=== PATIENT | male | born 1970 | race Caucasian/White ===

== ENCOUNTER 2022-05-04 15:12 | Emergency (ER) | payer MEDICARE, MEDICAID, SELFPAY ==
[2022-05-04 15:16] VITALS: BP 138/94; PULSE 106; RESP 16; TEMP 36.6; O2SAT 100
--- NOTE | 2022-05-04 15:46 | PC.NURSE ---
pt brother to desk to inform staff that he is going to take his brother home because he cannot wait this long. stating he might call an ambulance for him tomorrow or take him to a different facility. brother informed this RN cannot help him make that decision but we would be more than happy to take care of him.
== END 2022-05-04 15:46 | disposition left against medical advice (07) ==
PROVIDERS: PCP Family Medicine
DX: J02.9 Acute pharyngitis, unspecified (principal)
CPT/HCPCS: 99199

== ENCOUNTER 2022-06-30 14:00 | Emergency (ER) | payer MEDICARE, MEDICAID, SELFPAY ==
[2022-06-30 14:44] VITALS: BP 101/55; PULSE 95; RESP 14; TEMP 36.2; O2SAT 98
--- NOTE | 2022-06-30 17:22 | ED.MALEGU ---
HPI - Male Genitourinary General Chief complaint: Urogenital-Male Stated complaint: UTI Time Seen by Provider: 06/30/22 17:09 Source: patient and family Mode of arrival: wheelchair Limitations: other (patient is non-verbal) History of Present Illness HPI Narrative: This is a 52 year old male that presents to the ER for an at home positive UTI test. 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 Patient's brother reports he had a UTI a couple of weeks ago and was hospitalized at [facility]. They thought they should recheck him for UTI at home today. The at home test kit was positive. The patient does not seem to be having any symptoms. He has not seem to be in any pain. Patient is incontinent of urine chronically. He has not had any fevers or vomiting. 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 Family History Family History Sibling Family history of hypercholesterolemia Hypertension Acute myocardial infarction Family history of coronary artery disease Mother Family history of atrial fibrillation Family history of congestive heart failure Social History Social History (Updated 04/17/22 @ 15:53 by Nena Mejia [facility]) Smoking status: Never smoker Second hand tobacco smoke exposure: No Alcohol intake: never Substance use: never Substance use type: does not use Gender identity (if verbalized by the patient): Male Spiritual care concerns: No Agree to blood products: Yes Exam Narrative: GENERAL: Well-appearing, well-nourished, and in no acute distress. HEAD: Normocephalic, atraumatic. EYES: EOMI. CHEST: Clear to auscultation. No respiratory distress. No wheezes rales or rhonchi HEART: Regular rate and rhythm. No murmur heard. Normal peripheral pulses. ABDOMEN: Soft, nontender, nondistended, normal active bowel sounds. No CVA tenderness EXTREMITIES: Normal range of motion. No edema. SKIN: Warm, dry, no rash. NEURO: No focal deficits. Alert and oriented x1. PSYCH: Normal mood and affect Course Consultations Consultation #1: spoke with Dr. Browne about patient and workup who will get message to patient's PCP, Dr. Dorantes to follow up Date: 06/30/22 Vital Signs Vital signs: Vital Signs Temperature 97.1 F L 06/30/22 14:44 Pulse Rate 95 06/30/22 14:44 Respiratory Rate 14 06/30/22 14:44 Blood Pressure 101/55 L 06/30/22 14:44 Pulse Oximetry 98 06/30/22 14:44 Oxygen Delivery Room Air 06/30/22 14:44 Temperature 97.1 F L 06/30/22 14:44 Pulse Rate 95 06/30/22 14:44 Respiratory Rate 14 06/30/22 14:44 Blood Pressure 101/55 L 06/30/22 14:44 Pulse Oximetry 98 06/30/22 14:44 Oxygen Delivery Room Air 06/30/22 14:44 MDM - Male Genitourinary MDM Narrative Medical decision making narrative: Patient presents to the ER for a positive at home UTI kit. Patient with history of chromosomal abnormality and is non-verbal. History given by his brother. Patient is afebrile and nontoxic appearing. His vitals are stable. Does not appear to be in any pain. Abdominal exam is benign. No vomiting. CBC with mild leukocytosis. Also shows normocytic anemia with hemoglobin of 9.2. Metabolic panel with evidence of chronic renal disease looking at recent labs from one month ago his creatinine was 2.8 at that time
--- NOTE | 2022-06-30 18:22 | PC.NURSE ---
patient family, Joseph, would like a call when decision is made as to whether or not to discharge or admit
[2022-06-30 18:23] LABS: Basophils Absolute Auto 0.1 K/mm3 (0.0-0.1); Basophils Percent Auto 1.2 % (0.2-1.2); Eosinophils Absolute Auto 0.5 K/mm3 (0-0.3); Eosinophils Percent Auto 4.8 % (0-4.4); Hematocrit 27.2 % (42.0-52.0); Hemoglobin 9.2 g/dL (14.0-18.0); Immature Granulocyte Absolute 0.05 K/mm3 (0.00-0.031); Immature Granulocyte Percent A 0.4 % (0-0.5); Lymphocytes Absolute Auto 2.52 K/mm3 (0.9-3.2); Lymphocytes Percent Auto 22.6 % (18.3-44.2); Mean Corpuscular HGB Conc 33.8 g/dl (32-36); Mean Corpuscular Hemoglobin 29.5 pg (26-34); Mean Corpuscular Volume 87.2 fl (80-100); Mean Platelet Volume 8.9 fl (7.4-10.4); Monocytes Absolute Auto 1.3 K/mm3 (0.1-0.6); Monocytes Percent Auto 11.5 % (2.6-8.5); Neutrophils Absolute Auto 6.6 K/mm3 (1.3-6.7); Neutrophils Percent Auto 59.5 % (45.5-73.1); Platelet Count Result 279 k/mm3 (150-375); Red Blood Count 3.12 M/mm3 (4.6-6.20); White Blood Count 11.1 K/mm3 (4.5-10.0)
[2022-06-30 18:30] LABS: Appearance Urine Clear (Clear); Bilirubin Urine Negative (Negative); Blood Urine 1+ (Negative); Color Urine Yellow (Yellow); Glucose Urine UA Negative (Negative); Ketones Urine Negative (Negative); Leukocyte Esterase Ur 3+ LEU/UL (Negative); Nitrate Urine Negative (Negative); Protein Urine Trace mg/dL (Negative); Urobilinogen Urine 0.2 mg/dL (<2.0)
[2022-06-30 18:32] LABS: Anion Gap 12 mmol/L (8-16); Blood Urea Nitrogen 27 mg/dL (9-20); Calcium 8.7 mg/dL (8.4-10.2); Carbon Dioxide 20 mmol/L (22-30); Chloride 109 mmol/L (98-107); Estimated Glomerular Filt Rate 28; Glucose 95 mg/dL (65-110); Potassium 4.5 mmol/L (3.4-5.0); Sodium 141 mmol/L (137-145)
[2022-06-30 18:39] LABS: Mucus Urine Rare /lpf; WBC Clumps Urine Present /HPF; WBC Urine >75 /hpf
[2022-06-30 18:40] LABS: Add Urine Microscopic? YES
[2022-06-30 19:15] VITALS: BP 132/78; PULSE 88; RESP 13; O2SAT 95
[2022-06-30] MEDS: SODIUM CHLORIDE 0.9% IV 500 ML 999 ML IV CONT (19:41)
[2022-06-30 21:52] VITALS: BP 124/80; PULSE 85; RESP 12; O2SAT 98
== END 2022-06-30 22:41 | disposition home or self-care (01) ==
PROVIDERS: Nurse Practitioner Family; Physician Assistant; Emergency Provider Emergency Medicine; PCP Family Medicine
DX: N30.00 Acute cystitis without hematuria (principal)
CPT/HCPCS: 36415; 80048; 81001; 85025; 87077; 87086; 87186; 96361; 96365; 99284; J0696; J7040